=== PATIENT | female | born 1985 | race Caucasian/White ===

== ENCOUNTER → 2018-10-25 15:55 | Outpatient (CLI) | payer BC, SELFPAY ==
[2018-10-25 18:26] LABS: Hematocrit 36.1 % (36-46); Hemoglobin 12.7 g/dL (12.0-16.0)
[2018-10-25 18:40] LABS: GTT (PREG) 1 Hour PP 50gm Dose 152 mg/dL (76-139)
[2018-10-25 18:58] LABS: Free T4, Direct Thyroxine 0.78 ng/dL (0.78-2.19)
[2018-10-25 19:12] LABS: Thyroid Stimulating Hormone 2.29 uIU/mL (0.47-4.68)
== END ==
PROVIDERS: Family Provider Obstetrics & Gynecology; Visit Provider Obstetrics & Gynecology
DX: Z34.82 Encounter for supervision of other normal pregnancy, second trimester (principal); E03.9 Hypothyroidism, unspecified
CPT/HCPCS: 36415; 82950; 84439; 84443; 85014; 85018

== ENCOUNTER → 2018-10-26 09:59 | Outpatient (CLI) | payer BC, SELFPAY ==
[2018-10-26 13:15] LABS: Glucose 1 Hour Gest 113 mg/dL (76-180)
[2018-10-26 13:15] LABS: Glucose Fasting Gestational 77 mg/dL (76-95)
[2018-10-26 14:17] LABS: Glucose 2 Hour Gest 139 mg/dL (76-155)
[2018-10-26 15:52] LABS: Glucose Tol Interp,Gestational INTERPRETATION
[2018-10-26 16:50] LABS: Glucose 3 Hour Gest 83 mg/dL (76-140)
== END ==
PROVIDERS: Visit Provider Obstetrics & Gynecology
DX: R73.09 Other abnormal glucose (principal)
CPT/HCPCS: 36415; 82951; 82952

== ENCOUNTER → 2018-11-17 19:27 | Outpatient (REF) | payer BC, SELFPAY ==
[2018-11-17 21:03] LABS: Urine N gonorrhoeae NOT DETECTED
[2018-11-17 21:39] LABS: Urine Chlamydia NOT DETECTED
== END ==
LOC: LAB 19:27
PROVIDERS: Family Provider Obstetrics & Gynecology; Visit Provider Obstetrics & Gynecology
DX: Z34.03 Encounter for supervision of normal first pregnancy, third trimester (principal)
CPT/HCPCS: 87491; 87591

== ENCOUNTER 2018-11-25 09:11 | Outpatient (CLI) | payer BC, SELFPAY | END 2018-11-25 10:30 | disposition home or self-care (01) | LOC: LABOR 09:37 → OB 14:35 | PROVIDERS: Visit Provider Obstetrics & Gynecology | DX: Z03.71 Encounter for suspected problem with amniotic cavity and membrane ruled out (principal); Z3A.32 32 weeks gestation of pregnancy | CPT/HCPCS: 59025; 84112; G0378; G0379 ==

== ENCOUNTER → 2018-12-20 14:23 | Outpatient (CLI) | payer BC, SELFPAY ==
[2018-12-21 12:24] LABS: Strep Grp B PCR NEG for Grp B Strep
== END ==
PROVIDERS: Visit Provider Obstetrics & Gynecology
DX: Z34.03 Encounter for supervision of normal first pregnancy, third trimester (principal)
CPT/HCPCS: 87653

== ENCOUNTER 2019-01-17 19:57 | Inpatient (IN) | payer BC, SELFPAY ==
[2019-01-17] MEDS: miSOPROStol 25 MCG TABLET VAG (20:44)
[2019-01-17 20:52] LABS: Add Manual Diff / Slide Review NO; Basophils Absolute Auto 0 /uL (0-100); Basophils Percent Auto 0.2 % (0-2); Eosinophils Absolute Auto 0 /uL (0-450); Eosinophils Percent Auto 0.4 % (2-4); Hematocrit 34.7 % (36-46); Hemoglobin 12.3 g/dL (12.0-16.0); Lymphocytes Absolute Auto 2600 /uL (1100-4500); Lymphocytes Percent Auto 21.8 % (25-40); Mean Corpuscular HGB Conc 35.5 % (30-36); Mean Corpuscular Hemoglobin 32.2 PG (26-34); Mean Corpuscular Volume 90.8 fL (80-100); Monocytes Absolute Auto 900 /uL (0-900); Monocytes Percent Auto 7.5 % (3-14); Neutrophils Absolute Auto 8200 /uL (1500-7000); Neutrophils Percent Auto 70.1 % (50-75); Platelet Count 154 X10^3/uL (150-400); Red Blood Cell Count 3.82 X10^6/uL (4.0-5.2); Red Cell Distribution Width 12.9 % (11.6-14.8); White Blood Cell Count 11.8 X10^3/uL (4.5-11.0)
[2019-01-17 22:10] VITALS: BP 123/77
[2019-01-18] MEDS: LACTATED RINGERS 1,000 ML 100 ML IV ×5 (04:00→21:30)
[2019-01-18] MEDS: miSOPROStol 25 MCG TABLET VAG (04:26)
[2019-01-18] MEDS: OXYTOCIN PREMIX 30 UNIT/500 ML PLAST..BAG IV (09:01)
[2019-01-18] MEDS: CEFAZOLIN 2 GM/100 ML FROZ.PIGGY IV ×2 (14:40→18:58)
--- NOTE | 2019-01-18 18:59 | SUR.OPER ---
Viable female delivered at 19:08. Cord blood x2 and placenta sent with L&D RN.
--- NOTE | 2019-01-18 19:09 | SUR.OPER ---
Viable male born at 19:08. Cord blood x2 and placenta sent with L&D RN.
--- NOTE | 2019-01-18 19:48 | PM.PREOP ---
Pre-operative Note Interval Note History & Physical reviewed/Exam performed by Physician: Yes Changes to H&P: No
--- NOTE | 2019-01-18 19:48 | PM.GYNOP.1 ---
Operative Date/Time/Diagnoses Date of procedure: 01/18/19 Time of procedure: 19:49 Pre-op diagnosis: 39 week gestation Persistent late deceleration Stage I arrest of labor Post-op diagnosis: same Procedure: Procedures Operation Date: 01/18/19 18:45 Actual Procedures Side Surgeon p Section Ale Green MD Indications: Persistent late decelerations Stage I arrest of labor Surgeon: Ale Green Anesthesia Type: Epidural (With Duramorph) Operative Notes Findings: Live male in the direct occiput anterior presentation Double nuchal cord Normal uterus, tubes, and ovaries Closure Type: primary Specimen(s): other (Placenta and cord bloods) Applied: catheter Estimated blood loss (mL): 300 Blood products transfused: none Procedure in detail: The patient was taken to the operating room where she was placed in the dorsal supine position with a leftward tilt. She was prepped and draped in the usual sterile fashion. A timeout was performed. After Epidural analgesia was found to be adequate, a Pfannenstiel skin incision was made 2 fingerbreadths above the pubic symphysis and carried through to the underlying layer fascia. The fascia was nicked in the midline, and the incision extended bilaterally with the Morelos scissors. The superior aspect of the fascial incision was grasped with a Ravi clamps, elevated, and the underlying rectus muscles dissected off sharply and bluntly. Attention was then turned to the inferior aspect of this incision which in a similar fashion was grasped with a Ravi clamps, elevated, and the underlying rectus muscles dissected off sharply and bluntly. The rectus muscles were in the midline. The peritoneum was identified, grasped between 2 hemostats, and entered sharply with the Metzenbaum scissors. This incision was extended superiorly and inferiorly with good visualization of the bladder. The bladder blade was inserted. The vesicouterine peritoneum was identified, grasped with the pickup, and entered sharply with the Metzenbaum scissors. This incision was extended bilaterally, and the bladder flap was created digitally. The bladder blade was reinserted. The lower uterine segment was incised in a transverse fashion with the scalpel. Upon entering the amniotic sac there was a small amount of clear amniotic fluid. The infant's head was delivered with vacuum assistance. The nose and mouth were suctioned with bulb suction. A double nuchal cord was reduced. The remainder of the body delivered without difficulty. The cord was double clamped and cut. The was handed off to waiting RN and RT. The placenta was delivered manually. The uterus was cleared of all clots and debris. The uterine incision was repaired with #1 chromic in a running interlocking fashion, and a second layer the same suture was used for an imbricating layer. Hemostasis was achieved. The tubes and ovaries were examined and were found to be normal. The gutters were cleared of all clots and debris. The bladder flap was reapproximated using 2-0 Vicryl in a running fashion. The parietal peritoneum was closed using 2-0 Vicryl in a running fashion. The fascia was reapproximated using 0 Vicryl in a running fashion. The subcutaneous layer was copiously irrigated with warm normal saline. Five simple interrupted sutures of 3-0 Vicryl were placed to reapproximate the subcutaneous layer. The skin was closed with 4-0 undyed Vicryl in a subcuticular fashion. Steri-Strips were placed. An Aquacel dressing was placed. The uterus was expressed of a small amount of old blood. Sponge, lap, and instrument counts were correct x-2. The patient tolerated the procedure well, and was taken to PACU in stable condition. Complications: none Post-operative Condition: stable Disposition: PACU Plan for aftercare: To Center after delivery
[2019-01-18 19:53] VITALS: BP 105/62; PULSE 106; RESP 16; TEMP 36.8; O2SAT 99
[2019-01-18 19:55] VITALS: BP 118/73; PULSE 89; RESP 16; TEMP 37; O2SAT 99
--- NOTE | 2019-01-18 19:57 | PM.OBPNLAB ---
Date/Time Date Patient Seen: 01/18/19 Time Patient Seen: 18:20 Pain Control Pain control: epidural Pelvic Exam Dilation (cm): 9 Effacement (%): 90 station: -1 Amniotic membrane status: Ruptured Contractions Contractions on admission: regular Monitor mode: External Pitocin rate (mU/min): 14 Contraction frequency (min): 3 Contraction pattern: Regular Contraction intensity: Strong/Firm Status status: Category ll (late decelerations) Heart Rate Baseline: 135 Monitor Accelerations: Present Monitor Decelerations: Late (And variable) Monitor Variability: Moderate Assessment and Plan Assessment: other (No change in cervical dilation or descent of head with late decels) Plan: Comments: The risks, benefits, and alternatives to the procedure were explained to the patient. The risks including bleeding, infection, injury to the bowel, bladder, or ureters. She understands these risks and agrees to proceed. A consent form was signed.
[2019-01-18 20:00] VITALS: BP 119/82; PULSE 100; PULSE 95; RESP 14; O2SAT 100; O2SAT 99
[2019-01-18 20:20] VITALS: BP 126/75; PULSE 88; RESP 16; TEMP 37.5; O2SAT 100
--- NOTE | 2019-01-18 21:13 | SUR.PHASEI ---
Late entry: pt arrived stating she felt weird after meds given in OR, Dr Fernández spoke with pt about meds given. Pt alert and oriented, shivering. Norman davis applied, shakes resolved by discharge from unit. Report called to Yuli and pt transferred via bed to room 8. Pt left in stable condition.
[2019-01-19] MEDS: KETOROLAC 30 MG/ML VIAL IV ×3 (02:00→13:31)
[2019-01-19 06:41] LABS: Hematocrit 29.8 % (36-46); Hemoglobin 10.7 g/dL (12.0-16.0)
[2019-01-19] MEDS: PRENATAL VIT,CALC/IRON/FOLIC 1 TABLET 1 TAB PO (08:35)
[2019-01-19] MEDS: DOCUSATE 250 MG CAPSULE PO (08:36)
[2019-01-19] MEDS: IBUPROFEN 600 MG TABLET PO (18:03)
--- NOTE | 2019-01-19 18:18 | PM.OBPN.1 ---
Subjective - OB Patient comments: no complaints, pain well controlled and tolerating diet [place] baby status: nursing well [place] feeding status: exclusively breast feeding Date Patient Seen: 01/19/19 Time Patient Seen: 18:19 Interval history: Patient is a 33-year-old 1 para 1 op day # 1 status post primary section due to recurrent late decelerations in the 1st stage of labor Exam Vital Signs (past 8 hours): Oxygen Delivery Method Room Air Narrative Exam Narrative: Generally: Patient is sitting up in bed, holding infant, no acute distress Lungs: Clear to auscultation bilaterally Cardiovascular: Regular rate and rhythm Fundus: Firm at U -1 Incision: Clean dry and intact with Aquacel dressing Extremities: Negative Homans, no edema Objective Labs Result Diagrams: 01/19/19 06:20 Labs: Laboratory Results - last 24 hr 01/19/19 06:20 Hgb 10.7 L Hct 29.8 L Assessment & Plan Plan day: 1 plan OB: routine postop care Time Spent With Patient Total time spent is greater than 50% in coordination of care (as documented) at patient's floor/unit and/or counseling patient: 15-24 minutes
--- NOTE | 2019-01-19 18:21 | P.PNOB_ITS ---
Subjective - OB Patient comments: no complaints, pain well controlled and tolerating diet [place] baby status: nursing well [place] feeding status: exclusively breast feeding Date Patient Seen: 01/19/19 Time Patient Seen: 18:19 Interval history: Patient is a 33-year-old 1 para 1 op day # 1 status post primary section due to recurrent late decelerations in the 1st stage of labor Exam Vital Signs (past 8 hours): Oxygen Delivery Method Room Air Narrative Exam Narrative: Generally: Patient is sitting up in bed, holding infant, no acute distress Lungs: Clear to auscultation bilaterally Cardiovascular: Regular rate and rhythm Fundus: Firm at U -1 Incision: Clean dry and intact with Aquacel dressing Extremities: Negative Homans, no edema Objective Labs Result Diagrams: 01/19/19 06:20 Labs: Laboratory Results - last 24 hr 01/19/19 06:20 Hgb 10.7 L Hct 29.8 L Assessment & Plan Plan day: 1 plan OB: routine postop care Time Spent With Patient Total time spent is greater than 50% in coordination of care (as documented) at patient's floor/unit and/or counseling patient: 15-24 minutes
[2019-01-20] MEDS: IBUPROFEN 600 MG TABLET PO ×3 (00:13→13:15)
[2019-01-20] MEDS: PRENATAL VIT,CALC/IRON/FOLIC 1 TABLET 1 TAB PO (09:08)
[2019-01-20] MEDS: LANOLIN OINT 7 GM 1 APPLIC TOP (09:08)
[2019-01-20] MEDS: DOCUSATE 250 MG CAPSULE PO (09:09)
[2019-01-20 12:18] VITALS: BP 114/70; PULSE 68; RESP 16; TEMP 37.1
[2019-01-20 12:35] VITALS: BP 114/70; PULSE 68; RESP 16; TEMP 37.1
--- NOTE | 2019-02-07 14:21 | PM.OBDS.1 ---
Discharge Providers Date of admission: 01/17/19 19:57 Discharge Date: 01/20/19 Consults: 01/18/19 21:05 Consult to [facility] Routine Comment: Discharge provider: Ale Green MD Summary Date Patient Seen: 01/20/19 Time Patient Seen: 13:30 Procedures: Induction of labor with Pitocin Artificial rupture of membranes Epidural analgesia Primary low-transverse section Hospital Course: Patient is a 33-year-old 1 para 1 who presented for induction of labor at 39 weeks gestation. She was started on Pitocin. She received an epidural for pain management. She progressed to 9cm. The baby began having persistent late decelerations without further change of the cervix. A decision was made to proceed with a primary low-transverse section which she underwent without complication. Her postoperative course was unremarkable and she was discharged home on postop day # 2. Peripartum Data Infant Delivery Method: Section Laceration description: None Episiotomy description: None Procedures: Pitocin induction of labor Artificial rupture membranes Epidural analgesia Primary low-transverse section complications: none Status at Discharge Cognitive/behavioral status at discharge: oriented Functional status at discharge: independent ambulation Overall status at discharge: patient is progressing back to baseline Time Spent with Patient Total time spent providing and/or coordinating discharge services: Less than 30 minutes Objective Labs Result Diagrams: 01/19/19 06:20 Exam Vital Signs (past 8 hours): Oxygen Delivery Method Room Air Narrative Exam Narrative: Generally: Patient is sitting up in bed, holding infant, no acute distress Lungs: Clear to auscultation bilaterally Cardiovascular: Regular rate and rhythm Fundus: Firm at U -2 Incision: Clean dry and intact with Aquacel dressing Extremities: Trace edema, negative Homans Discharge Plan Discharge Plan Patient Disposition: Home Discharge comment: Call with fever, chills, redness or drainage around the incisions or bleeding vaginally more than a pad in an hour May use Ibuprofen 600mg every 6 hours and Tylenol 650/1000mg every 4/6 hours Discharge Med Rec/Prescriptions Prescriptions: Continued prenat.vits,dez,jbj-[id number]-[id number] tablet 1 tab PO DAILY RF: 0 levothyroxine 50 mcg capsule 50 mcg PO DAILY RF: 0 Discontinued aspirin [Adult Aspirin Regimen] 81 mg tablet,delayed release (DR/EC) 81 mg PO DAILY RF: 0 No Action Double Electric Breast Pump Qty: 1 RF: 0 Follow up/Referrals: Ale Green MD [Physician] - 1 Week (Aquacel dressing removal with Dr. Green on January 26 at 4:45, check in at 4:30. Follow up with Dr. Green for 6 week appointment on March 07 at 4:00 check in at 3:45. Call if you have any questions or need to reschedule.) Provider Discharge Instructions Diet: Regular Activity: No heavy lifting Skin/Wound/Dressing Care Report to your healthcare provider any signs of infection, such as:: chills, fever, increased pain, unusual drainage and unusual redness Dressing: Do not remove Visit Report/Discharge Packet Instructions: DI for Stand Alone Forms: Discharge: Care Discharge Data Attending Provider: Ale Green Admit Date/Time: 01/17/19 19:57 Discharges patient from system. Discharge Date/Time: 01/20/19 15:30
== END 2019-01-20 15:30 | disposition home or self-care (01) | DRG 788 ==
PROVIDERS: Admitting Provider Obstetrics & Gynecology; Visit Provider Obstetrics & Gynecology
PROC: 10D00Z1 Extraction of Products of Conception, Low, Open Approach (ICD-10-PCS; CPT 59514; principal; 2019-01-18 18:45)
DX: O76 Abnormality in fetal heart rate and rhythm complicating labor and delivery (principal); Z37.0 Single live birth; Z3A.39 39 weeks gestation of pregnancy; O62.1 Secondary uterine inertia
CPT/HCPCS: 01967; 01968; 36415; 59050; 59515; 85014; 85018; 85025; 86850; 86900; 86901; 99406; G0379; J0690; J1885; J2250; J2274; J2590

== ENCOUNTER → 2019-03-20 15:08 | Outpatient (CLI) | payer BC, SELFPAY ==
[2019-03-20 16:30] LABS: Free T4, Direct Thyroxine 2.17 ng/dL (0.78-2.19)
[2019-03-20 16:44] LABS: Thyroid Stimulating Hormone < 0.02 uIU/mL (0.47-4.68)
== END ==
PROVIDERS: Visit Provider Obstetrics & Gynecology
DX: E03.9 Hypothyroidism, unspecified (principal)
CPT/HCPCS: 36415; 84439; 84443

== ENCOUNTER → 2019-05-04 09:11 | Outpatient (CLI) | payer BC, SELFPAY ==
[2019-05-04 10:50] LABS: Free T4, Direct Thyroxine 2.34 ng/dL (0.78-2.19)
[2019-05-04 11:04] LABS: Thyroid Stimulating Hormone < 0.02 uIU/mL (0.47-4.68)
== END ==
PROVIDERS: Visit Provider Obstetrics & Gynecology
DX: E03.9 Hypothyroidism, unspecified (principal)
CPT/HCPCS: 36415; 84439; 84443

== ENCOUNTER → 2019-06-13 16:26 | Outpatient (CLI) | payer BC, SELFPAY ==
[2019-06-13 18:04] LABS: Free T4, Direct Thyroxine 0.97 ng/dL (0.78-2.19)
[2019-06-13 18:18] LABS: Thyroid Stimulating Hormone 0.08 uIU/mL (0.47-4.68)
== END ==
PROVIDERS: Visit Provider Obstetrics & Gynecology
DX: E03.9 Hypothyroidism, unspecified (principal)
CPT/HCPCS: 36415; 84439; 84443

== ENCOUNTER → 2019-09-18 08:19 | Outpatient (CLI) | payer BC, SELFPAY ==
[2019-09-18 09:58] LABS: Free T4, Direct Thyroxine 0.97 ng/dL (0.78-2.19)
[2019-09-18 10:12] LABS: Thyroid Stimulating Hormone 7.45 uIU/mL (0.47-4.68)
== END ==
PROVIDERS: Visit Provider Obstetrics & Gynecology
DX: Z13.29 Encounter for screening for other suspected endocrine disorder (principal); E03.9 Hypothyroidism, unspecified
CPT/HCPCS: 36415; 84439; 84443

== ENCOUNTER → 2019-11-15 17:15 | Outpatient (CLI) | payer BC, SELFPAY ==
[2019-11-15 18:57] LABS: Thyroid Stimulating Hormone 0.87 uIU/mL (0.47-4.68)
== END ==
PROVIDERS: Referring Provider Obstetrics & Gynecology; Visit Provider Obstetrics & Gynecology
DX: E03.9 Hypothyroidism, unspecified (principal)
CPT/HCPCS: 36415; 84439; 84443

== ENCOUNTER → 2020-01-01 11:10 | Outpatient (CLI) | payer BC, SELFPAY ==
[2020-01-01 12:22] LABS: Add Manual Diff / Slide Review NO; Basophils Absolute Auto 0 /uL (0-100); Basophils Percent Auto 0.1 % (0-2); Eosinophils Absolute Auto 0 /uL (0-450); Eosinophils Percent Auto 0.5 % (2-4); Hematocrit 39.1 % (36-46); Hemoglobin 13.6 g/dL (12.0-16.0); Lymphocytes Absolute Auto 1300 /uL (1100-4500); Lymphocytes Percent Auto 17.3 % (25-40); Mean Corpuscular HGB Conc 34.7 % (30-36); Mean Corpuscular Hemoglobin 30.7 PG (26-34); Mean Corpuscular Volume 88.7 fL (80-100); Monocytes Absolute Auto 500 /uL (0-900); Monocytes Percent Auto 6.8 % (3-14); Neutrophils Absolute Auto 5500 /uL (1500-7000); Neutrophils Percent Auto 75.3 % (50-75); Platelet Count 225 X10^3/uL (150-400); Red Blood Cell Count 4.41 X10^6/uL (4.0-5.2); Red Cell Distribution Width 12.5 % (11.6-14.8); White Blood Cell Count 7.4 X10^3/uL (4.5-11.0)
[2020-01-01 12:35] LABS: Appearance Urine UA CLEAR; Bilirubin Urine UA NEGATIVE (NEGATIVE); Color Urine UA YELLOW; Glucose Urine UA NEGATIVE (Negative); Ketones Urine UA NEGATIVE (NEGATIVE); Leukocyte Esterase Urine UA NEGATIVE (NEGATIVE); Nitrite Urine UA NEGATIVE (Negative); Occult Blood Urine UA NEGATIVE (Negative); Protein Urine UA NEGATIVE (Negative); Urobilinogen Urine UA 0.2 E.U./dL (0.2)
[2020-01-01 13:07] LABS: TSH w/ Reflex to FT4 1.42 uIU/mL (0.47-4.68)
[2020-01-01 17:03] LABS: HIV 1 & 2 Ab/Ag 4th Gen Combo NEGATIVE (NEGATIVE); Hep C Virus Ab w/Reflex Quant NEGATIVE s/c (NEGATIVE); Hepatitis B Surface Antigen NEGATIVE s/c (NEGATIVE); Rubella Antibody IgG 73.2 IU/mL (>15)
[2020-01-02 08:39] LABS: RPR Screen Non Reactive (Non Reactive); Varicella IgG Antibody 3226 index (Immune >165)
== END ==
PROVIDERS: Referring Provider Obstetrics & Gynecology; Visit Provider Obstetrics & Gynecology
DX: O99.281 Endocrine, nutritional and metabolic diseases complicating pregnancy, first trimester (principal); E03.9 Hypothyroidism, unspecified
CPT/HCPCS: 36415; 80055; 81003; 84443; 86787; 86803; 86850; 86900; 86901; 87077; 87086; 87389

== ENCOUNTER → 2020-01-15 14:53 | Outpatient (CLI) | payer BC, SELFPAY ==
[2020-01-15 19:50] LABS: Urine N gonorrhoeae NOT DETECTED
[2020-01-15 19:55] LABS: Urine Chlamydia NOT DETECTED
== END ==
PROVIDERS: Visit Provider Obstetrics & Gynecology
DX: Z11.3 Encounter for screening for infections with a predominantly sexual mode of transmission (principal)
CPT/HCPCS: 87491; 87591

== ENCOUNTER → 2020-02-12 09:02 | Outpatient (CLI) | payer BC, SELFPAY ==
[2020-02-15 16:18] LABS: Sequential Screen 1st Trimeste FINAL PENDING
== END ==
DX: Z34.81 Encounter for supervision of other normal pregnancy, first trimester (principal); Z36.0 Encounter for antenatal screening for chromosomal anomalies; Z3A.13 13 weeks gestation of pregnancy
CPT/HCPCS: 36415; 84163; 84702

== ENCOUNTER → 2020-03-13 08:27 | Outpatient (CLI) | payer BC, SELFPAY ==
[2020-03-13 10:29] LABS: Free T4, Direct Thyroxine 1.14 ng/dL (0.78-2.19)
[2020-03-13 10:43] LABS: Thyroid Stimulating Hormone 1.59 uIU/mL (0.47-4.68)
[2020-03-15 13:12] LABS: Sequential Screen 2nd Trimeste SCREEN NEGATIVE
== END ==
PROVIDERS: Obstetrics & Gynecology
DX: O09.522 Supervision of elderly multigravida, second trimester (principal); Z36.0 Encounter for antenatal screening for chromosomal anomalies; E03.9 Hypothyroidism, unspecified
CPT/HCPCS: 36415; 81420; 82105; 82677; 84163; 84439; 84443; 84702; 86336

== ENCOUNTER → 2020-05-25 08:30 | Outpatient (CLI) | payer BC, SELFPAY ==
[2020-05-25 10:54] LABS: Hemoglobin 12.1 g/dL (12.0-16.0)
[2020-05-25 11:07] LABS: GTT (PREG) 1 Hour PP 50gm Dose 159 mg/dL (76-139)
== END ==
PROVIDERS: Referring Provider Obstetrics & Gynecology; Visit Provider Obstetrics & Gynecology
DX: Z34.82 Encounter for supervision of other normal pregnancy, second trimester (principal); Z3A.26 26 weeks gestation of pregnancy
CPT/HCPCS: 36415; 82950; 85014; 85018

== ENCOUNTER → 2020-06-07 07:06 | Outpatient (CLI) | payer BC, SELFPAY ==
[2020-06-07 08:24] LABS: Glucose Fasting 97 mg/dL (70-100)
[2020-06-07 08:53] LABS: TSH w/ Reflex to FT4 1.03 uIU/mL (0.47-4.68)
[2020-06-07 09:21] LABS: Glucose 1 Hour 208 mg/dL (70-170)
[2020-06-07 09:43] LABS: Free T4, Direct Thyroxine 0.97 ng/dL (0.78-2.19)
[2020-06-07 10:18] LABS: Glucose 2 Hour 119 mg/dL (70-140)
[2020-06-07 10:31] LABS: Glucose Tol Interpretation INTERPRETATION
[2020-06-07 11:10] LABS: Glucose 3 Hour 90 mg/dL (70-115)
== END ==
PROVIDERS: Obstetrics & Gynecology; PCP Registered Nurse Diabetes Educator; Referring Provider Obstetrics & Gynecology; Visit Provider Obstetrics & Gynecology
DX: O99.810 Abnormal glucose complicating pregnancy (principal); Z3A.28 28 weeks gestation of pregnancy; E03.9 Hypothyroidism, unspecified
CPT/HCPCS: 36415; 82951; 82952; 84439; 84443

== ENCOUNTER → 2020-07-22 17:52 | Outpatient (CLI) | payer BC, SELFPAY ==
[2020-07-23 11:09] LABS: Strep Grp B PCR NEG for Grp B Strep
== END ==
PROVIDERS: PCP Registered Nurse Diabetes Educator; Visit Provider Obstetrics & Gynecology
DX: Z34.83 Encounter for supervision of other normal pregnancy, third trimester (principal); Z3A.36 36 weeks gestation of pregnancy
CPT/HCPCS: 87653

== ENCOUNTER → 2020-08-09 11:15 | Outpatient (CLI) | payer BC, SELFPAY ==
[2020-08-10 01:34] LABS: COVID19 Sendout Not Detected (Not Detect)
== END ==
PROVIDERS: PCP Registered Nurse Diabetes Educator; Visit Provider Physician Assistant
DX: Z11.59 Encounter for screening for other viral diseases (principal)
CPT/HCPCS: 87635

== ENCOUNTER 2020-08-12 08:59 | Inpatient (IN) | payer BC, SELFPAY ==
[2020-08-12] MEDS: LACTATED RINGERS 1,000 ML 1000 ML IV (09:45)
[2020-08-12 10:20] VITALS: BP 112/73
[2020-08-12 10:28] VITALS: BP 112/73
[2020-08-12] MEDS: LACTATED RINGERS 1,000 ML 100 ML IV ×3 (10:52→18:30)
[2020-08-12 11:02] LABS: Add Manual Diff / Slide Review NO; Basophils Absolute Auto 0 /uL (0-100); Basophils Percent Auto 0.2 % (0-2); Eosinophils Absolute Auto 0 /uL (0-450); Eosinophils Percent Auto 0.4 % (2-4); Hematocrit 38.7 % (36-46); Hemoglobin 13.4 g/dL (12.0-16.0); Lymphocytes Absolute Auto 1400 /uL (1100-4500); Mean Corpuscular HGB Conc 34.6 % (30-36); Mean Corpuscular Hemoglobin 31.8 PG (26-34); Monocytes Absolute Auto 600 /uL (0-900); Monocytes Percent Auto 6.5 % (3-14); Neutrophils Absolute Auto 7700 /uL (1500-7000); Neutrophils Percent Auto 78.9 % (50-75); Platelet Count 183 X10^3/uL (150-400); Red Blood Cell Count 4.21 X10^6/uL (4.0-5.2); Red Cell Distribution Width 12.9 % (11.6-14.8); White Blood Cell Count 9.7 X10^3/uL (4.5-11.0)
--- NOTE | 2020-08-12 11:09 | PM.PREOP ---
Pre-operative Note COVID-19 COVID-19 status: Negative Result date/Date tested (Pos, Neg/Pending): 08/09/20 Interval Note History & Physical reviewed/Exam performed by Physician: Yes Changes to H&P: No
--- NOTE | 2020-08-12 11:15 | SUR.OPER ---
Supine on Padded OR bed, head on pillow, safety belt at thigh, arms secured on padded arm boards at <90 degrees abduction. Bump under right buttock. Legs uncrossed with pillow under knees, gel pad to heels, tape over blanket to lower legs.
[2020-08-12] MEDS: CITRIC ACID/SODIUM CITRATE 15 ML SOLUTION 30 ML PO (11:23)
[2020-08-12] MEDS: ACETAMINOPHEN 325 MG TABLET 975 MG PO (11:24)
[2020-08-12] MEDS: CEFAZOLIN 2 GM/100 ML FROZ.PIGGY IV (11:42)
--- NOTE | 2020-08-12 12:17 | SUR.OPER ---
Addendum entered by Celia Light R.N. 08/12/20 12:18: at [id number] Original Note: FHT: 140[place] [id number]
[2020-08-12 12:45] VITALS: BP 96/51; PULSE 82; RESP 12; TEMP 36.3; O2SAT 98
[2020-08-12 12:50] VITALS: BP 96/50; PULSE 86; RESP 16; TEMP 36.4; O2SAT 99
--- NOTE | 2020-08-12 12:51 | PM.GYNOP.1 ---
Operative Date/Time/Diagnoses Date of procedure: 08/12/20 Time of procedure: 12:51 Pre-op diagnosis: 39 weeks gestation Previous C section Post-op diagnosis: same Procedure & Clinicians Procedure: Procedures Operation Date: 08/12/20 10:45 Actual Procedures Side Surgeon p Repeat Section Ale Green MD Indications: Thirty-nine weeks gestation Previous section Surgeon: Ale Green Machine Edge Bander: Marisa Heredia Anesthesia Type: Spinal (With dermal) Operative Notes Findings: Live female infant in the left occiput transverse presentation. 's back towards mom's back. Normal tubes and ovaries Closure Type: primary Specimen(s): other (Placenta to path, cord bloods to lab) Applied: catheter (To continuous drainage) Estimated blood loss (mL): 300 Blood products transfused: none Procedure in detail: The patient was taken to the operating room where she was placed in the seated position. Spinal anesthesia with Duramorph was administered. The patient was then placed in the dorsal supine position with a leftward tilt. She was prepped and draped in the usual sterile fashion. A timeout was performed. After spinal analgesia was found to be adequate, a Pfannenstiel skin incision was made through the previous incision and carried through to the underlying layer fascia. The fascia was nicked in the midline, and the incision extended bilaterally with the Morelos scissors. The superior aspect of the fascial incision was grasped with a [place] clamps, elevated, and the underlying rectus muscles dissected off sharply and bluntly. Attention was then turned to the inferior aspect of this incision which in a similar fashion was grasped with a Ravi clamps, elevated, and the underlying rectus muscles dissected off sharply and bluntly. The rectus muscles were in the midline. The peritoneum was identified, grasped between 2 hemostats, and entered sharply with the Metzenbaum scissors. This incision was extended superiorly and inferiorly with good visualization of the bladder. The bladder blade was inserted. The vesicouterine peritoneum was identified, grasped with the pickup, and entered sharply with the Metzenbaum scissors. This incision was extended bilaterally, and the bladder flap was created digitally. The bladder blade was reinserted. The lower uterine segment was incised in a transverse fashion with the scalpel. Upon entering the amniotic sac there was a copious amount of moderate meconium-stained amniotic fluid. The infant's head was delivered with vacuum assistance. The nose and mouth were suctioned with bulb suction. The remainder of the body delivered without difficulty. The cord was double clamped and cut. The was handed off to waiting RN and RT. The placenta was delivered manually. The uterus was cleared of all clots and debris. The uterine incision was repaired with #0 chromic in a running interlocking fashion, and a second layer the same suture was used for an imbricating layer. Hemostasis was achieved. The tubes and ovaries were examined and were found to be normal. The gutters were cleared of all clots and debris. The bladder flap was reapproximated using 2-0 Vicryl in a running fashion. The parietal peritoneum was closed using 2-0 Vicryl in a running fashion. The fascia was reapproximated using 0 Vicryl in a running fashion. The subcutaneous layer was copiously irrigated with warm normal saline. 5 simple interrupted sutures of 3-0 Vicryl were placed to reapproximate the subcutaneous layer. The skin was closed with 4-0 Biosyn in a subcuticular fashion. Steri-Strips were placed. An Aquacel dressing was placed. The uterus was expressed of a small amount of old blood. Sponge, lap, and instrument counts were correct x-2. The patient tolerated the procedure well, and was taken to PACU in stable condition. Complications: none Post-operative Condition: stable Disposition: PACU Plan for aftercare: To the center after recovery
[2020-08-12 12:55] VITALS: BP 103/51; PULSE 83; RESP 13; O2SAT 99
[2020-08-12 13:06] VITALS: BP 98/61; PULSE 80; RESP 18; O2SAT 100
[2020-08-12] MEDS: KETOROLAC 30 MG/ML VIAL IV (18:05)
[2020-08-13] MEDS: KETOROLAC 30 MG/ML VIAL IV ×2 (00:12→06:07)
[2020-08-13 04:24] VITALS: BP 109/66; PULSE 78; RESP 18; TEMP 37.2
[2020-08-13 08:42] LABS: Hematocrit 32.7 % (36-46); Hemoglobin 11.4 g/dL (12.0-16.0)
--- NOTE | 2020-08-13 10:11 | P.PNOB_ITS ---
Subjective - OB Subjective Patient comments: no complaints, pain well controlled and tolerating diet baby status: doing well (A few issues with nursing) [place] feeding status: exclusively breast feeding Date Patient Seen: 08/13/20 Time Patient Seen: 07:20 Interval history: Patient is a 35-year-old 2 para 2 postop day # 2 status post repeat low-transverse section. Carrasco catheter removed this morning. Patient has not had the urge to void as of yet. Pain is well controlled. She is tolerating a diet. She has showered. She is ambulating independently. Exam Vital Signs (past 8 hours): Oxygen Delivery Method Room Air Narrative Exam Narrative: Generally: Patient is sitting up in bed, no acute distress Lungs: Clear to auscultation bilaterally Cardiovascular: Regular rate and rhythm Fundus: Firm at U -1 Incision: Clean dry and intact with Aquacel dressing Extremities: Trace edema, negative Homans Objective Labs Result Diagrams: 08/13/20 07:56 Labs: Laboratory Results - last 24 hr 08/12/20 08/12/20 08/13/20 10:45 10:45 07:56 WBC 9.7 RBC 4.21 Hgb 13.4 11.4 L Hct 38.7 32.7 L MCV 92.0 MCH 31.8 MCHC 34.6 RDW 12.9 Plt Count 183 Neut % (Auto) 78.9 H Lymph % (Auto) 14.0 L Henry % (Auto) 6.5 Eos % (Auto) 0.4 L Baso % (Auto) 0.2 Neut # (Auto) 7700 H Lymph # (Auto) 1400 Henry # (Auto) 600 Eos # (Auto) 0 Baso # (Auto) 0 Blood Type O Positive Antibody Screen Negative Assessment & Plan Plan day: 1 plan OB: routine postop care Comments: support Time Spent With Patient Time: Total time spent is greater than 50% in coordination of care (as documented) at patient's floor/unit and/or counseling patient: Time with patient: less than 15 minutes
[2020-08-13] MEDS: IBUPROFEN 600 MG TABLET PO ×2 (12:32→18:34)
[2020-08-13] MEDS: ACETAMINOPHEN 325 MG TABLET 650 MG PO ×2 (12:32→18:35)
[2020-08-14] MEDS: IBUPROFEN 600 MG TABLET PO ×3 (00:33→12:15)
[2020-08-14] MEDS: ACETAMINOPHEN 325 MG TABLET 650 MG PO ×3 (00:33→12:15)
[2020-08-14] MEDS: LEVOTHYROXINE 100 MCG TABLET PO (06:25)
[2020-08-14] MEDS: PRENATAL VIT,CALC/IRON/FOLIC 1 TABLET 1 TAB PO (09:08)
[2020-08-14] MEDS: DOCUSATE 250 MG CAPSULE PO (09:08)
[2020-08-14] MEDS: CALCIUM CARBONATE 500 MG TAB 1000 MG PO (12:17)
== END 2020-08-14 01:20 | disposition home or self-care (01) | DRG 788 ==
PROVIDERS: Admitting Provider Obstetrics & Gynecology; PCP Registered Nurse Diabetes Educator; Referring Provider Obstetrics & Gynecology; Visit Provider Obstetrics & Gynecology
PROC: 10D00Z1 Extraction of Products of Conception, Low, Open Approach (ICD-10-PCS; CPT 59514; principal; 2020-08-12 10:45)
DX: O34.211 Maternal care for low transverse scar from previous cesarean delivery (principal); Z3A.39 39 weeks gestation of pregnancy; Z37.0 Single live birth; O32.2XX0 Maternal care for transverse and oblique lie, not applicable or unspecified; E03.9 Hypothyroidism, unspecified
CPT/HCPCS: 36415; 59050; 59510; 59514; 85014; 85018; 85025; 86850; 86900; 86901; J0690; J1885; J2274; J2590

== ENCOUNTER → 2021-05-12 14:05 | Outpatient (CLI) | payer BC, SELFPAY ==
[2021-05-12 15:17] LABS: Hematocrit 37.9 % (36-46); Hemoglobin 13.1 g/dL (12.0-16.0); Mean Corpuscular HGB Conc 34.5 % (30-36); Mean Corpuscular Hemoglobin 31.3 PG (26-34); Mean Corpuscular Volume 90.6 fL (80-100); Platelet Count 214 X10^3/uL (150-400); Red Blood Cell Count 4.18 X10^6/uL (4.0-5.2); Red Cell Distribution Width 12.5 % (11.6-14.8); White Blood Cell Count 5.3 X10^3/uL (4.5-11.0)
[2021-05-12 15:35] LABS: Alanine Aminotransferase 15 IU/L (<35); Albumin 4.5 g/dL (3.5-5.0); Albumin Globulin Ratio 1.6 (1.0-2.8); Alkaline Phosphatase 86 U/L (38-126); Aspartate Aminotransferase 30 IU/L (14-36); BUN Creatinine Ratio 17.7 (6-22); Bilirubin Total 1.1 mg/dL (0.2-1.3); Blood Urea Nitrogen 11 mg/dL (7-17); Calcium 9.1 mg/dL (8.4-10.2); Carbon Dioxide 26 mmol/L (22-32); Chloride 105 mmol/L (98-107); Cholesterol 173 mg/dL (140-199); Estimated Glomerular Filt Rate > 60.0 mL/min (>60); Globulin 2.9 g/dL (1.7-4.1); Glucose 88 mg/dL (70-100); HDL Cholesterol 53 mg/dL (40-60); HEMOLYSIS < 15 (0-50); LDL Cholesterol Calculated 102 mg/dL (<100); Potassium 4.2 mmol/L (3.4-5.1); Sodium 137 mmol/L (137-145); Total Protein 7.4 g/dL (6.3-8.2); Triglycerides 88 mg/dL (35-150)
[2021-05-12 15:59] LABS: TSH w/ Reflex to FT4 3.18 uIU/mL (0.47-4.68)
== END ==
PROVIDERS: PCP Registered Nurse Diabetes Educator; Referring Provider Registered Nurse Diabetes Educator; Visit Provider Registered Nurse Diabetes Educator
DX: Z00.00 Encounter for general adult medical examination without abnormal findings (principal); E03.9 Hypothyroidism, unspecified
CPT/HCPCS: 36415; 80053; 80061; 84443; 85027

== ENCOUNTER → 2021-09-23 10:26 | Outpatient (CLI) | payer BC, SELFPAY ==
[2021-09-23 11:24] LABS: Add Manual Diff / Slide Review NO; Basophils Absolute Auto 0 /uL (0-100); Basophils Percent Auto 0.3 % (0-2); Eosinophils Absolute Auto 0 /uL (0-450); Eosinophils Percent Auto 0.4 % (2-4); Hematocrit 35.5 % (36-46); Hemoglobin 12.5 g/dL (12.0-16.0); Lymphocytes Absolute Auto 1500 /uL (1100-4500); Lymphocytes Percent Auto 20.3 % (25-40); Mean Corpuscular HGB Conc 35.2 % (30-36); Mean Corpuscular Hemoglobin 30.7 PG (26-34); Mean Corpuscular Volume 87.3 fL (80-100); Monocytes Absolute Auto 400 /uL (0-900); Neutrophils Absolute Auto 5200 /uL (1500-7000); Platelet Count 238 X10^3/uL (150-400); Red Blood Cell Count 4.07 X10^6/uL (4.0-5.2); Red Cell Distribution Width 12.6 % (11.6-14.8); White Blood Cell Count 7.2 X10^3/uL (4.5-11.0)
[2021-09-23 11:48] LABS: Appearance Urine UA CLEAR; Bilirubin Urine UA NEGATIVE (NEGATIVE); Color Urine UA YELLOW; Glucose Urine UA NEGATIVE (Negative); Ketones Urine UA NEGATIVE (NEGATIVE); Leukocyte Esterase Urine UA NEGATIVE (NEGATIVE); Nitrite Urine UA NEGATIVE (Negative); Occult Blood Urine UA NEGATIVE (Negative); Protein Urine UA NEGATIVE (Negative); Urobilinogen Urine UA 0.2 E.U./dL (0.2)
[2021-09-23 12:16] LABS: Free T4, Direct Thyroxine 1.41 ng/dL (0.78-2.19)
[2021-09-23 12:30] LABS: Thyroid Stimulating Hormone 1.36 uIU/mL (0.47-4.68)
[2021-09-23 13:02] LABS: HIV 1 & 2 Ab/Ag 4th Gen Combo NEGATIVE (NEGATIVE); Hep C Virus Ab w/Reflex Quant NEGATIVE s/c (NEGATIVE); Hepatitis B Surface Antigen NEGATIVE s/c (NEGATIVE)
[2021-09-23 13:03] LABS: Rubella Antibody IgG 56.2 IU/mL (>15)
[2021-09-24 05:22] LABS: Varicella IgG Antibody 2514 index (Immune >165)
[2021-09-24 07:37] LABS: RPR Screen Non Reactive (Non Reactive)
== END ==
PROVIDERS: PCP Registered Nurse Diabetes Educator; Referring Provider Obstetrics & Gynecology; Visit Provider Obstetrics & Gynecology
DX: O09.521 Supervision of elderly multigravida, first trimester (principal); Z36.0 Encounter for antenatal screening for chromosomal anomalies
CPT/HCPCS: 36415; 80055; 81003; 84439; 84443; 86787; 86803; 86850; 86900; 86901; 87086; 87389

== ENCOUNTER → 2021-11-10 10:30 | Outpatient (CLI) | payer BC, SELFPAY ==
[2021-11-12 21:07] LABS: Gest Age on Col Date 17.7 weeks (.); Insulin Dep Diabetes No (.); OSBR Risk 1IN 10000 (.); Results Report (.); Test Results *Screen Negative* (.)
== END ==
PROVIDERS: PCP Registered Nurse Diabetes Educator; Referring Provider Obstetrics & Gynecology; Visit Provider Obstetrics & Gynecology
DX: Z34.82 Encounter for supervision of other normal pregnancy, second trimester (principal); Z3A.17 17 weeks gestation of pregnancy
CPT/HCPCS: 36415; 82105

== ENCOUNTER → 2021-12-02 14:18 | Outpatient (CLI) | payer BC, SELFPAY ==
--- NOTE | 2021-12-02 14:20 | DI.US.S_ITS ---
PROCEDURE: US OB >= 14 WEEKS FETUS INDICATIONS: 20 WEEK ANATOMY SCAN OUTSIDE/PRIOR DATING DATA: Last menstrual period (LMP): 07/08/2021 LMP-based estimated date of delivery (LUIS): 04/14/2022 First dating scan (date and location): 09/10/2021 Estimated date of delivery (LUIS) from first dating scan: 04/20/2022 The calculations are made using the ultrasound LUIS of 04/20/2022. TECHNIQUE: Real-time scanning was performed of the fetus, with image documentation and biometric measurements. Endovaginal scanning: Not performed. COMPARISON: [facility], US, US OB >= 14 WEEKS FETUS, 10/13/2021, 10:11. FINDINGS: General: A single living intrauterine gestation is present. Presentation: Variable, transverse and breech Placenta: Placental position is posterior, with inferior margin approximately 1.5 cm from the internal cervical os. Amniotic fluid index: 10.2 cm, normal range is 5-24 cm. Single deepest vertical pocket is 3.1 cm. heart rate: 152 beats per minute. Maternal cervical canal: 4.3 cm long. Normal lower limit is 2.5 cm. biometrics: Biparietal diameter: 4.7 cm, 20 weeks 1 day Head circumference: 18 cm, 20 weeks 3 days Abdominal circumference: 14.8 cm, 20 weeks 1 day Femur length: 3.3 cm, 20 weeks 3 days Clinically estimated gestational age: 20 weeks 1 day Composite gestational age from present scan: 20 weeks 2 days Estimated weight and percentile: 342 grams, 52nd percentile Anatomic survey: Neuro: Ventricles are non-dilated at less than 10 mm. Cisterna magna is normal at 3-11 mm. Cerebellum is normal in size and morphology. Nuchal skin fold: Normal at less than 6 mm between 14-21 weeks gestational age. Face: Nose and lips, facial profile are normal. Spine: No evidence for spina bifida. Heart: 4-chambered heart is present, with normal ventricular outflow tracts. Diaphragm: Diaphragm is intact. Stomach: Left-sided stomach is present. Kidneys: No hydronephrosis. Normal is less than 5 mm in 2nd trimester, less than 7 mm in 3rd trimester. Cord: 3-vessel cord has orthotopic insertion. Bladder: Normal in size. Extremities: All 4 extremities identified. IMPRESSION: 1. Single live intrauterine with appropriate interval growth. Estimated weight is 342 grams, 52nd percentile 2. anatomic survey within normal limits. 3. Low lying placenta with inferior margin approximately 1.5 cm from the internal cervical os. Recommend attention on follow-up exams. We strive to produce accurate, complete, and clear reports of imaging services. To assist us in improving patient care, this report was composed using standard report templates and voice recognition software. Therefore, it may contain abnormal punctuation, insertions and/or omissions. Occasional wrong-word or sound-alike substitutions may occur. Though we review the report and make efforts to correct it, we do recommend that the report be read carefully in proper context to recognize any text inaccuracies. Dictated by: Morro Mckay M.D. on 12/02/2021 at 16:29 Approved by: Morro Mckay M.D. on 12/02/2021 at 16:37
== END ==
PROVIDERS: PCP Registered Nurse Diabetes Educator; Referring Provider Obstetrics & Gynecology; Visit Provider Obstetrics & Gynecology
DX: Z34.82 Encounter for supervision of other normal pregnancy, second trimester (principal); Z3A.20 20 weeks gestation of pregnancy
CPT/HCPCS: 76811

== ENCOUNTER → 2021-12-08 16:06 | Outpatient (CLI) | payer BC, SELFPAY ==
[2021-12-08 21:17] LABS: Urine N gonorrhoeae NOT DETECTED
[2021-12-08 21:25] LABS: Urine Chlamydia NOT DETECTED
== END ==
PROVIDERS: PCP Registered Nurse Diabetes Educator; Referring Provider Obstetrics & Gynecology; Visit Provider Obstetrics & Gynecology
DX: Z34.82 Encounter for supervision of other normal pregnancy, second trimester (principal); Z3A.21 21 weeks gestation of pregnancy
CPT/HCPCS: 87491; 87591

== ENCOUNTER → 2022-01-05 15:07 | Outpatient (CLI) | payer BC, SELFPAY ==
[2022-01-05 16:56] LABS: Hematocrit 30.5 % (36-46)
[2022-01-05 17:30] LABS: GTT (PREG) 1 Hour PP 50gm Dose 99 mg/dL (76-139)
[2022-01-05 17:58] LABS: Thyroid Stimulating Hormone 1.35 uIU/mL (0.47-4.68)
== END ==
PROVIDERS: PCP Registered Nurse Diabetes Educator; Referring Provider Obstetrics & Gynecology; Visit Provider Obstetrics & Gynecology
DX: Z34.82 Encounter for supervision of other normal pregnancy, second trimester (principal)
CPT/HCPCS: 36415; 82950; 84439; 84443; 85014; 85018